=== PATIENT | female | born 1980 | race Hispanic/Latino ===

== ENCOUNTER 2017-05-07 12:56 | Observation (INO) | payer OTHER ==
[~2017-05-07] VITALS: Ht 160 cm; Wt 81.2 kg
[2017-05-08] MEDS ORDERED: PREN-154 PO (12:18)
== END 2017-05-07 14:56 | disposition home or self-care (01) ==
LOC: EDH 12:56 → LDH 13:19
PROVIDERS: ADMIT Obstetrics & Gynecology; ATTEND Obstetrics & Gynecology
DX: O42.92 Full-term premature rupture of membranes, unspecified as to length of time between rupture and onset of labor (principal); O09.523 Supervision of elderly multigravida, third trimester; Z3A.39 39 weeks gestation of pregnancy
CPT/HCPCS: 76819; 99285; G0378 ×2

== ENCOUNTER 2017-05-08 03:37 | Inpatient (IN) | payer OTHER ==
[~2017-05-08] VITALS: Ht 160 cm; Wt 81.2 kg
[2017-05-08] MEDS ORDERED: LACTATED RINGERS 1000ML IV PRN (03:45)
[2017-05-08] MEDS ORDERED: PROMETHAZINE HCL 25 MG/ML 1ML AMPULE IM PRN (04:15)
[2017-05-08] MEDS ORDERED: PROMETHAZINE HCL 25 MG/ML 1ML AMPULE IM ONE (04:15)
[2017-05-08] MEDS ORDERED: MEPERIDINE-PF 50 MG/ML SYG IVP PRN (04:15)
[2017-05-08] MEDS ORDERED: MEPERIDINE-PF 50 MG/ML SYG ONE (04:17)
[2017-05-08 04:27] VITALS: BP 128/72
[2017-05-08 04:40] LABS: HEMATOCRIT 36.7 % (36-48); MEAN CORPUSCULAR HEMOGLOBIN 32.7 pg (27.0-33.0); MEAN CORPUSCULAR HGB CONC 35.1 g/dL (32.0-36.0); MEAN CORPUSCULAR VOLUME 93.3 fL (79-99); PLATELET COUNT (AUTO) 222 K/uL (130-400); RED BLOOD CELL COUNT(AUTO) 3.93 MIL/uL (4.00-5.50); RED CELL DISTRIBUTION WIDTH 13.4 % (11.0-15.5); WHITE BLOOD COUNT (AUTO) 16.8 K/uL (4.8-10.8)
[2017-05-08] MEDS ORDERED: LACTATED RINGERS 1000ML 1,000 ML IV ONE ×3 (04:41→11:37)
[2017-05-08] MEDS ORDERED: ROPIVACAINE 0.2%200ML EPIDURAL 200 ML EP STA (05:01)
[2017-05-08] MEDS ORDERED: EPHEDRINE SULFATE 50 MG/ML AMPULE IVP PRN (05:15)
[2017-05-08] MEDS ORDERED: NALOXONE HCL 0.4 MG/1 ML ML IV PRN (05:15)
[2017-05-08] MEDS: LACTATED RINGERS 500 ML 500 ML IV PRN ×2 (05:30→10:00)
[2017-05-08] MEDS ORDERED: LACTATED RINGERS 1000ML 1,000 ML IV SCH (06:00)
[2017-05-08] MEDS ORDERED: OXYTOCIN 10 USP UNITS/ML ONE ×3 (06:34→14:35)
[2017-05-08] MEDS ORDERED: OXYTOCIN 10 USP UNITS/ML 20 UNIT in LACTATED RINGERS 1000ML 1,000 ML IV SCH (07:15)
[2017-05-08] MEDS ORDERED: CEFAZOLIN SODIUM 1 GM VIAL ONE (10:01)
[2017-05-08] MEDS ORDERED: CALDOLOR 800MG+NS 250ML 0 ML IV ONE (10:01)
[2017-05-08] MEDS ORDERED: METHYLERGONOVINE MALEATE 0.2 MG/1 ML ML ONE (10:18)
[2017-05-08] MEDS ORDERED: METHYLERGONOVINE MALEATE 0.2 MG/1 ML ML IM SCH (10:25)
[2017-05-08] MEDS ORDERED: OXYTOCIN-LR 20 UNITS/1000 ML 1,000 ML IV SCH (10:45)
[2017-05-08] MEDS ORDERED: MEASLES/MUMPS/RUBELLA VACCINE, LIVE 0.5 ML/VIAL SQ PRN ×2 (10:45→12:00)
[2017-05-08] MEDS ORDERED: ACETAMINOPHEN 325 MG TAB PO PRN ×2 (10:45→12:00)
[2017-05-08] MEDS ORDERED: BENZOCAINE/LANOLIN/ALOE VERA 60 ML AEROSOL TP PRN ×2 (10:45→12:00)
[2017-05-08] MEDS ORDERED: LANOLIN 30GM OINTMENT TP PRN ×2 (10:45→12:00)
[2017-05-08] MEDS ORDERED: ACETAMINOPHEN-CODEINE 300/30MG TAB PO PRN ×2 (10:45→12:00)
[2017-05-08] MEDS ORDERED: DIPH,PERTUSS(ACELL),TET VAC/PF 0.5 ML VIAL IM PRN ×2 (10:45→12:00)
[2017-05-08] MEDS ORDERED: WITCH HAZEL 1 PAD TP PRN ×2 (10:45→12:00)
[2017-05-08 11:52] VITALS: BP 130/68
[2017-05-08] MEDS ORDERED: IBUPROFEN 800 MG TAB PO PRN (12:00)
[2017-05-08] MEDS: IBUPROFEN 800 MG TAB PO PRN ×2 (12:05→20:58)
[2017-05-08] MEDS ORDERED: PREN-154 PO (12:18)
[2017-05-08] MEDS ORDERED: CEFAZOLIN 2GM / 50 ML 50 ML IV SCH (14:30)
[2017-05-08 15:49] VITALS: BP 126/79
[2017-05-08] MEDS: CEFAZOLIN SODIUM 1 GM VIAL IVP SCH ×2 (16:12→21:17)
[2017-05-08 19:37] VITALS: BP 121/70
[2017-05-08] MEDS: DOCUSATE SODIUM 100 MG CAP PO SCH (20:58)
[2017-05-08] MEDS: OSELTAMIVIR PHOSPHATE 75 MG CAP PO SCH (20:58)
[2017-05-08] MEDS ORDERED: DOCUSATE SODIUM 100 MG CAP PO SCH (21:00)
[2017-05-09 00:09] VITALS: BP 109/65
[2017-05-09] MEDS: CEFAZOLIN SODIUM 1 GM VIAL IVP SCH ×4 (03:12→21:13)
[2017-05-09 03:36] VITALS: BP 117/75
[2017-05-09 06:49] LABS: HEMATOCRIT 32.3 % (36-48); MEAN CORPUSCULAR HEMOGLOBIN 32.4 pg (27.0-33.0); MEAN CORPUSCULAR HGB CONC 34.4 g/dL (32.0-36.0); MEAN CORPUSCULAR VOLUME 94.2 fL (79-99); PLATELET COUNT (AUTO) 217 K/uL (130-400); RED BLOOD CELL COUNT(AUTO) 3.43 MIL/uL (4.00-5.50); RED CELL DISTRIBUTION WIDTH 13.6 % (11.0-15.5); WHITE BLOOD COUNT (AUTO) 19.8 K/uL (4.8-10.8)
[2017-05-09 07:59] VITALS: BP 107/64
[2017-05-09 08:19] LABS: HEPATITIS Bs ANTIGEN SCREEN P Negative (Negative)
[2017-05-09] MEDS: DOCUSATE SODIUM 100 MG CAP PO SCH ×2 (09:44→21:12)
[2017-05-09] MEDS: OSELTAMIVIR PHOSPHATE 75 MG CAP PO SCH ×2 (09:44→21:13)
[2017-05-09] MEDS: IBUPROFEN 800 MG TAB PO PRN ×2 (11:09→13:55)
[2017-05-09 15:35] VITALS: BP 108/63
[2017-05-09 19:46] VITALS: BP 115/71
[2017-05-09 23:15] VITALS: BP 112/66
[2017-05-10] MEDS: IBUPROFEN 800 MG TAB PO PRN ×2 (02:30→10:50)
[2017-05-10] MEDS: CEFAZOLIN SODIUM 1 GM VIAL IVP SCH ×2 (03:10→09:13)
[2017-05-10 03:25] VITALS: BP 126/76
[2017-05-10 08:18] VITALS: BP 128/79
[2017-05-10] MEDS: OSELTAMIVIR PHOSPHATE 75 MG CAP PO SCH (09:13)
[2017-05-10] MEDS: DOCUSATE SODIUM 100 MG CAP PO SCH (09:13)
[2017-05-10 12:34] VITALS: BP 133/90
== END 2017-05-10 13:40 | disposition home or self-care (01) | DRG 560 ==
LOC: EDH 03:37 → OBSVTOIN 03:38 → LDH 03:38 → WSH 11:40
PROVIDERS: ADMIT Obstetrics & Gynecology; ATTEND Obstetrics & Gynecology
PROC: 0KQM0ZZ Repair Perineum Muscle, Open Approach (ICD-10-PCS; principal; 2017-05-08)
PROC: 10E0XZZ Delivery of Products of Conception, External Approach (ICD-10-PCS; 2017-05-08)
PROC: 3E0234Z Introduction of Serum, Toxoid and Vaccine into Muscle, Percutaneous Approach (ICD-10-PCS; 2017-05-08)
PROC: 3E0134Z Introduction of Serum, Toxoid and Vaccine into Subcutaneous Tissue, Percutaneous Approach (ICD-10-PCS; 2017-05-08)
PROC: 3E0R3BZ Introduction of Anesthetic Agent into Spinal Canal, Percutaneous Approach (ICD-10-PCS; 2017-05-08)
PROC: 00HU33Z Insertion of Infusion Device into Spinal Canal, Percutaneous Approach (ICD-10-PCS; 2017-05-08)
PROC: 10907ZC Drainage of Amniotic Fluid, Therapeutic from Products of Conception, Via Natural or Artificial Opening (ICD-10-PCS; 2017-05-08)
PROC: 3E033VJ Introduction of Other Hormone into Peripheral Vein, Percutaneous Approach (ICD-10-PCS; 2017-05-08)
DX: O76 Abnormality in fetal heart rate and rhythm complicating labor and delivery (principal); O70.1 Second degree perineal laceration during delivery; Z37.0 Single live birth; Z3A.38 38 weeks gestation of pregnancy; Z23 Encounter for immunization
CPT/HCPCS: 36415; 76819; 85027; 86592; 86850; 86900; 86901; 87340; 87804; A4218; A4314; A4351; G0378; J0690; J1741; J2175; J2210; J2550; J2590; J7120

== ENCOUNTER 2020-03-30 13:09 | Emergency (ER) | payer MEDICAID, OTHER ==
[~2020-03-30 13:09] MED LIST: PREN-154 PO
[2020-03-30 13:41] LABS: BASOPHILS % (AUTO) 1.5 % (0.0-5.0); HEMATOCRIT 39.7 % (36-48); LYMPHOCYTES % (AUTO) 25.8 % (21.0-51.0); MEAN CORPUSCULAR HGB CONC 34.8 g/dL (32.0-36.0); MEAN CORPUSCULAR VOLUME 89.2 fL (79-99); NEUTROPHILS % (AUTO) 61.5 % (40.0-77.0); PLATELET COUNT (AUTO) 357 K/uL (130-400); RED BLOOD CELL COUNT(AUTO) 4.45 MIL/uL (4.00-5.50); RED CELL DISTRIBUTION WIDTH 12.2 % (11.0-15.5); WHITE BLOOD COUNT (AUTO) 10.9 K/uL (4.8-10.8)
[2020-03-30] MEDS ORDERED: ZOSYN 3.375GM+NS 50ML 50 ML IV ONE (13:49)
[2020-03-30] MEDS ORDERED: ONDANSETRON HCL 4 MG/2 ML VIAL ONE (13:49)
[2020-03-30] MEDS ORDERED: MORPHINE SULFATE 4 MG/1ML SYG ONE (13:50)
[2020-03-30 13:51] LABS: CREATININE 0.9 mg/dL (0.5-1.5); POTASSIUM 3.3 mmol/L (3.5-5.1)
[2020-03-30] MEDS ORDERED: SODIUM CHLORIDE 0.9% 1000ML 1,000 ML IV ONE (13:51)
[2020-03-30 13:55] LABS: BILIRUBIN,TOTAL 0.5 mg/dL (0.2-1.0); TOTAL PROTEIN, SERUM 7.7 g/dL (6.0-8.3)
[2020-03-30 14:49] LABS: APPEARANCE,URINE Clear (CLEAR); BILIRUBIN,URINE Negative (NEGATIVE); COLOR,URINE Dark Yellow (YELLOW); GLUCOSE, URINE (UA) Negative (NEGATIVE); KETONES,URINE 40 mg/dL (NEGATIVE); LEUKOCYTE ESTERASE ,URINE Trace (NEGATIVE); NITRATE,URINE Negative (NEGATIVE); OCCULT BLOOD,URINE Negative (NEGATIVE); PROTEIN,URINE POS 1+ mg/dL (NEGATIVE)
[2020-03-30 14:57] LABS: AMPHET/METH SCREEN,URINE NEGATIVE (NEGATIVE); BARBITURATE SCREEN, URINE NEGATIVE (NEGATIVE); BENZODIAZEPINES SCREEN,URINE NEGATIVE (NEGATIVE); CANNABINOID SCREEN,URINE NEGATIVE (NEGATIVE); COCAINE SCREEN,URINE NEGATIVE (NEGATIVE); OPIATE SCREEN,URINE POSITIVE (NEGATIVE); PHENCYCLIDINE SCREEN,URINE NEGATIVE (NEGATIVE)
[2020-03-30 15:03] LABS: HCG,QUAL RESULT NEGATIVE (NEGATIVE)
[2020-03-30 16:22] LABS: BACTERIA,URINE Few /HPF (None Seen); MUCUS,URINE Few LPF (None Seen); RBC,URINE 0-1 /HPF (0-1); SQUAMOUS EPITHELIAL CELL,UR Moderate /HPF (0-2)
[2020-03-30 16:28] LABS: AMORPHOUS SEDIMENT,UR Rare /LPF (None Seen)
[2020-03-30] MEDS ORDERED: KETOROLAC TROMETHAMINE 30MG/ML ONE (17:05)
== END 2020-03-30 19:10 | disposition home or self-care (01) ==
LOC: EDH 13:09
DX: N83.201 Unspecified ovarian cyst, right side (principal); R10.2 Pelvic and perineal pain
CPT/HCPCS: 36415; 74176; 76856; 80053; 80305; 81001; 81025; 85025; 96365; 96372; 96375; 99285; J1885; J2270; J2405; J2543; J7030